=== PATIENT | female | born 1980 | race Caucasian/White ===

== ENCOUNTER 2025-02-17 05:39 | Emergency (ER) | payer OTHER ==
[~2025-02-17] VITALS: Ht 160 cm; Wt 50.0 kg
[~2025-02-17 05:39] MED LIST: BUPROPION XL300 MG PO; DOXYCYCLINE HY100 MG PO; FEROSUL325 MG PO; FLUOXETINE HCL20 MG PO; HYDROCODON-ACE1 EA10 PO; HYDROCODON-ACE1 EA11 PO; IBUPROFEN800 MG PO; METRONIDAZOLE500 MG PO; OMEPRAZOLE20 MG PO; ONDANSETRON ODT8 MG PO; PROMETHAZINE HC25 M1 PO; TIZANIDINE HCL4 MG PO
--- OUTSIDE RECORDS SUMMARY | 2025-02-17 05:46 | XMS ---
PreManage Notification: LEANNA DAMON Security Clinical Rn Events No recent Security Events currently on file CRITERIA MET - [facility] - 2 Visits in 30 Days CARE PROVIDERS -, [facility] Dentist: [employer] [facility] PHONE: [phone] [facility] Clinic/Center: Primary [facility] PHONE: [phone] Melchor has no Care Guidelines for this patient. E.Eliane VISIT COUNT (12 MO.) [address] TOTAL 4 NOTE: Visits indicate total known visits. ED/UCC VISIT TRACKING (12 MO.) 02/17/2025 05:[address] [facility] TYPE: Emergency COMPLAINT: - LOWER ABD PAIN THAT RADIATES 02/04/2025 11:[address] [facility] TYPE: Emergency COMPLAINT: - VOMITING DIAGNOSES: - Acute parametritis and pelvic cellulitis - Allergy status to narcotic agent - Lower abdominal pain, unspecified - Other rodent exterminator (current) drug therapy [facility] DIAGNOSES: - Pelvic and perineal pain - abd and n/v - Rectal Pain 08[facility]2024 15[facility] DIAGNOSES: - Unspecified abdominal pain - abd pain, flank pain - Flank Pain INPATIENT VISIT TRACKING (12 MO.) No inpatient visits to display in this time frame [email or web address]
[2025-02-17 06:14] LABS: BASOPHILS 0.4 % (0.1-1.2); HEMOGLOBIN 13.5 g/dL (11.2-15.7); LYMPHOCYTES 11.3 % (19.3-51.7); MCH 29.5 PG (25.6-32.2); MCHC 32.9 g/dL (32.2-35.5); MCV 89.5 fL (79.4-94.8); MONOCYTES 7.6 % (4.7-12.5); NEUTROPHILS 78.3 % (34.0-71.1); PLATELET COUNT 204 K/uL (182-369); RBC 4.58 M/uL (3.93-5.22)
[2025-02-17 06:32] LABS: ALBUMIN 3.8 g/dL (3.4-5.0); ALBUMIN/GLOBULIN RATIO 1.23 (1.1-2.4); ANION GAP 14.3 (7-21); BILIRUBIN, TOTAL 0.6 mg/dL (0.2-1.0); BUN/CREATININE RATIO 19.04 (6.0-28.6); CALCIUM 8.5 mg/dL (8.5-10.1); CREATININE, SERUM 0.84 mg/dL (0.55-1.02); POTASSIUM 3.3 mmol/L (3.5-5.1); PROTEIN, TOTAL 6.9 g/dL (6.4-8.2)
[2025-02-17] MEDS ORDERED: ONDANSETRON ODT8 MG PO (06:38)
[2025-02-17] MEDS ORDERED: ondansetron HCL 4 MG/2 ML VIAL IV ONE (06:45)
[2025-02-17] MEDS ORDERED: ONDANSETRON 4 MG HOME.PACK SL ONE (06:45)
[2025-02-17 06:55] VITALS: BP 114/78
== END 2025-02-17 06:55 | disposition home or self-care (01) ==
LOC: ED 05:39
PROVIDERS: Emergency Medicine
DX: N73.0 Acute parametritis and pelvic cellulitis (principal); Z79.899 Other long term (current) drug therapy; Z88.5 Allergy status to narcotic agent
CPT/HCPCS: 36415; 80053; 83690; 85025; 96374; 99284-25; A9270; J2405